=== PATIENT | male | born 1980 | race Caucasian/White ===

== ENCOUNTER 2017-06-11 12:42 | Observation (INO) | payer OTHER ==
[2017-06-11] VITALS (9 sets, daily range): BP systolic 109–141; BP diastolic 56–80; PULSE 42–68; RESP 14–18; TEMP 97.8–98.3; O2SAT 97–100
[~2017-06-11] VITALS: Ht 170.2 cm; Wt 78.0 kg
--- NOTE | 2017-06-11 12:54 | PD ---
Physical Exam Time Seen by Provider: 12:52 Narrative 36yo M c/o chest pain since 930am that comes and goes. Chest pain now w/ "very little SOB." +weakness and hard to concentrate since yesterday. Patient seen in triage. VS reviewed. Awaiting bed placement. Data Data Last Documented VS Vital Signs Date Time Temp Pulse Resp B/P (MAP) Pulse Ox O2 Delivery O2 Flow Rate FiO2 06/11/17 12:43 97.9 42 14 141/77 (98) 99 MDM Supervised Visit with LUX: Kelley Arellano Jun 11, 2017 12:53
[2017-06-11] MEDS ORDERED: SODIUM CHLORIDE 0.9% FLUSH 10 ML FLUSH IVF PRN (13:00)
[2017-06-11 13:23] LABS: AUTOMATED NEUTROPHIL # 3.8 TH/MM3 (1.8-7.7); BASOPHIL % 0.4 % (0.0-2.0); EOSINOPHIL % 0.6 % (0.0-4.0); HEMATOCRIT 46.8 % (39.0-51.0); HEMO FLAGS DIFF FINAL; LYMPH % 27.7 % (9.0-44.0); LYMPHOCYTE # 1.6 TH/MM3 (1.0-4.8); MEAN CELL VOLUME 88.5 FL (80.0-100.0); MEAN CORPUSCULAR HEMOGLOBIN 29.4 PG (27.0-34.0); MEAN CORPUSCULAR HGB CONC 33.2 % (32.0-36.0); MONO % 6.8 % (0.0-8.0); NEUT % 64.5 % (16.0-70.0); PLATELET COUNT 209 TH/MM3 (150-450); RED BLOOD COUNT 5.28 MIL/MM3 (4.50-5.90); RED CELL DISTRIBUTION WIDTH 13.7 % (11.6-17.2); WHITE BLOOD COUNT 5.9 TH/MM3 (4.0-11.0)
[2017-06-11 13:33] LABS: APTT (PATIENT) 31.7 SEC (24.3-30.1); PROTHROMBIN TIME - PATIENT 11.1 SEC (9.8-11.6)
[2017-06-11 13:48] LABS: ANION GAP 6 MEQ/L (5-15); BICARBONATE 27.1 MEQ/L (21.0-32.0); BLOOD UREA NITROGEN 13 MG/DL (7-18); CHLORIDE 106 MEQ/L (98-107); GLOMERULAR FILTRATION RATE 80 ML/MIN (>89); MAGNESIUM 2.4 MG/DL (1.5-2.5); POTASSIUM 4.1 MEQ/L (3.5-5.1); SODIUM (NA) 139 MEQ/L (136-145)
--- NOTE | 2017-06-11 13:48 | RADRPT ---
EXAM DATE/TIME: 06/11/2017 13:31 [facility] COMPARISON: No previous studies available for comparison. INDICATIONS : Chest pain. Tingling and heaviness in extremeties. Right-side facial numbness. Right-side headache. D izziness. MEDICAL HISTORY : Bradycardia. SURGICAL HISTORY : None. ENCOUNTER: Initial ACUITY: 2 days PAIN SCORE: 4/10 LOCATION: Left middle chest FINDINGS: PA and lateral views of the chest demonstrate the lungs to be symmetrically aerated without evidence of mass, infiltrate or effusion. The cardiomediastinal contours are unremarkable. Osseous structure s are intact. CONCLUSION: 1. No acute cardiopulmonary findings. Slava Arreguin MD on June 11, 2017 at 13:46 Board Certified Radiologist. This report was verified electronically.
[2017-06-11 14:03] LABS: CREATINE KINASE 770 U/L (39-308)
[2017-06-11 14:16] LABS: CKMB LESS THAN 0.5 NG/ML (0.5-3.6)
[2017-06-11] MEDS ORDERED: SUMA50TA2 PO (14:18)
[2017-06-11] MEDS ORDERED: TOPI1TAB97 PO (14:18)
[2017-06-11] MEDS ORDERED: ARTIDRO EACH EYE (14:18)
[2017-06-11] MEDS ORDERED: ESCI20TA PO (14:18)
--- NOTE | 2017-06-11 14:19 | PD ---
HPI Chief Complaint: Chest Pain Time Seen by Provider: 14:18 Travel History International Travel<30 days: No Contact w/Intl Traveler<30days: No Traveled to known affect area: No History of Present Illness HPI 36-year-old male with history of anxiety, presents to emergency department for evaluation. Patient states since yesterday he has been "not feeling right." He has had numbness and tingling in his arms with heavy legs. He has began having substernal chest pain that is intermittent and he is not currently having. At 9:00 this morning he began developed a right posterior headache with a change, slowly with some slurring in his speech. He states he is unable to concentrate. Patient recently restarted escitalopram for anxiety. He is on the dose that he has been on in the past. His accompanies him and states that she noticed speech this morning and some downward angling of his right eye. Patient has not been recently ill. He does have history of migraine headaches but this is not typical of any of his migraines in the past. He has no other symptoms to report at this time. [facility] Social History Tobacco Use: No Allergies-Medications (Allergen,Severity, Reaction): Coded Allergies: No Known Allergies (Unverified , 06/11/17) Reported Meds & Prescriptions Reported Meds & Active Scripts Active Reported Sumatriptan (Sumatriptan Succinate) 50 Mg Tab 50 Mg PO ONCE PRN If a satisfactory response has not been obtained at 2 hours, a second dose may be administered Topiramate 25 Mg Tab 25 Mg PO HS Escitalopram (Escitalopram Oxalate) 20 Mg Tab 20 Mg PO DAILY Artificial Tears Opth Drops (Propylene Glycol-Glycerin Opth Drops) 1-0.3% Drops 1-2 Drop EACH EYE TID PRN Review of Systems Except as stated in HPI: all other systems reviewed are Neg Physical Exam Narrative GENERAL: Well-nourished male patient, in no acute distress SKIN: Focused skin assessment warm/dry. HEAD: Atraumatic. Normocephalic. EYES: Pupils equal and round. No scleral icterus. No injection or drainage. EOMIs. PERRL ENT: No nasal bleeding or discharge. Mucous membranes pink and moist. NECK: Trachea midline. No JVD. CARDIOVASCULAR: Bradycardic rate and rhythm. No murmur appreciated. RESPIRATORY: No accessory muscle use. Clear to auscultation. Breath sounds equal bilaterally. GASTROINTESTINAL: Abdomen soft, non-tender, nondistended. Hepatic and splenic margins not palpable. MUSCULOSKELETAL: No obvious deformities. No clubbing. No cyanosis. No edema. 5+ equal strength bilateral upper and lower extremities. NEUROLOGICAL: Awake and alert. Symmetrical facial movements on cranial nerve exam. Patient can rise eyebrows. Forehead wrinkles equally. Open speaking with the patient, he appears to have a subtle right sided facial asymmetry. , Most noted at the lip and eye. Reports altered sensation to touch on the right. Motor grossly within normal limits. Normal speech. PSYCHIATRIC: Appropriate mood and affect; insight and judgment normal. Data Data Last Documented VS Vital Signs Date Time Temp Pulse Resp B/P (MAP) Pulse Ox O2 Delivery O2 Flow Rate FiO2 06/11/17 16:03 50 16 132/80 (97) 99 Room Air 06/11/17 15:32 97.9 Orders Orders Electrocardiogram (06/11/17 12:54) Basic Metabolic Panel (Bmp) (06/11/17 12:54) Ckmb (Isoenzyme) Profile (06/11/17 12:54) Complete Blood Count With Diff (06/11/17 12:54) Magnesium (Mg) (06/11/17 12:54) Prothrombin Time / Inr (Pt) (06/11/17 12:54) Act Partial Throm Time (Ptt) (06/11/17 12:54) Troponin I (06/11/17 12:54) Iv Access Insert/Monitor (06/11/17 12:54) Sodium Chloride 0.9% Flush (Ns Flush) (06/11/17 13:00) Chest, Pa & Lat (06/11/17 12:54) CKMB (06/11/17 13:10) CKMB% (06/11/17 13:10) Ct Brain W/O Iv Contrast(Rout) (06/11/17 ) Orthostatic Vital Signs (06/11/17 14:46) Sodium Chlor 0.9% 1000 Ml Inj (Ns 1000 M (06/11/17 15:30) Ketorolac Inj (Toradol Inj) (06/11/17 16:00) Diphenhydramine Inj (Benadryl Inj) (06/11/17 16:00) Metoclopramide Inj (Reglan Inj) (06/11/17 16:00) Sodium Chlor 0.9% 1000 Ml Inj (Ns 1000 M (06/11/17 16:00) Admit Order (Ed Use Only) (06/11/17 16:39) Place In Observation (06/11/17 ) Code Status (06/11/17 16:37) Vital Signs (Adult) Q2HX12,Q4H (06/11/17 16:37) Nih Stroke Scale - Nihss .Daily (06/11/17 16:37) Neuro Checks Q2HX12,Q4H (06/11/17 16:37) Notify Dr: Other (06/11/17 16:37) Remove Urinary Catheter .ONCE (06/11/17 16:37) Pt Request For Service (06/11/17 16:37) Speech Therapy Consult-Eval/Tx (06/11/17 16:37) Case Management Consult (06/11/17 ) Activity Oob Ad Rosmery (06/11/17 16:37) Nursing Bedside Swallow Assess .ONCE (06/11/17 16:37) Scd Bilateral/Knee High TERE.QSHIFT (06/11/17 16:37) Diet Npo (06/11/17 Dinner) Hemoglobin (Hgb) A1c (06/11/17 16:37) Lipid Profile (06/12/17 06:00) Mri Brain W/O Contrast (06/11/17 ) Echo 2d Comp With Doppler (06/11/17 ) ^ Hold Medication (06/11/17 16:37) Sodium Chloride 0.9% Flush (Ns Flush) (06/11/17 21:00) Sodium Chloride 0.9% Flush (Ns Flush) (06/11/17 16:45) Aspirin Chew (Aspirin Chew) (06/12/17 09:00) Bedside Glucose TERE.AC&HS (06/11/17 16:37) ^ Discontinue Insulin Orders (06/11/17 16:37) Insulin Aspart Supplemtl Scale (Novolog (06/11/17 21:00) Dextrose 50% In Karoline (Vial) Inj (D50w (Vi (06/11/17 16:45) Glucagon Inj (Glucagon Inj) (06/11/17 16:45) Urban Sociologist / Telemetry TERE.Q8H (06/11/17 16:37) Consult Donya Navigator (06/11/17 ) Enoxaparin Inj (Lovenox Inj) (06/11/17 16:45) Labs Laboratory Tests Test 06/11/17 13:10 White Blood Count 5.9 TH/MM3 Red Blood Count 5.28 MIL/MM3 Hemoglobin 15.5 GM/DL Hematocrit 46.8 % Mean Corpuscular Volume 88.5 FL Mean Corpuscular Hemoglobin 29.4 PG Mean Corpuscular Hemoglobin Concent 33.2 % Red Cell Distribution Width 13.7 % Platelet Count 209 TH/MM3 Mean Platelet Volume 8.5 FL Neutrophils (%) (Auto) 64.5 % Lymphocytes (%) (Auto) 27.7 % Monocytes (%) (Auto) 6.8 % Eosinophils (%) (Auto) 0.6 % Basophils (%) (Auto) 0.4 % Neutrophils # (Auto) 3.8 TH/MM3 Lymphocytes # (Auto) 1.6 TH/MM3 Monocytes # (Auto) 0.4 TH/MM3 Eosinophils # (Auto) 0.0 TH/MM3 Basophils # (Auto) 0.0 TH/MM3 CBC Comment DIFF FINAL Differential Comment Prothrombin Time 11.1 SEC Prothromb Time International Ratio 1.0 RATIO Activated Partial Thromboplast Time 31.7 SEC Blood Urea Nitrogen 13 MG/DL Creatinine 1.06 MG/DL Random Glucose 83 MG/DL Calcium Level 9.5 MG/DL Magnesium Level 2.4 MG/DL Sodium Level 139 MEQ/L Potassium Level 4.1 MEQ/L Chloride Level 106 MEQ/L Carbon Dioxide Level 27.1 MEQ/L Anion Gap 6 MEQ/L Estimat Glomerular Filtration Rate 80 ML/MIN Total Creatine Kinase 770 U/L Creatine Kinase MB LESS THAN 0.5 NG/ML Creatine Kinase MB % 0.1 % Troponin I LESS THAN 0.02 NG/ML MDM Medical Decision Making Medical Screen Exam Complete: Yes Emergency Medical Condition: Yes Medical Record Reviewed: Yes Differential Diagnosis Electrolyte abnormality versus psychiatric etiology versus cardiac etiology versus TIA versus CVA versus symptomatic bradycardia versus arrhythmia versus Root's palsy Narrative Course 36-year-old male presents with department for evaluation. Patient appears without distress. There is a very subtle asymmetry of the face noted with right sided deficit noted mostly in the eye and mouth. Strengths are equal bilaterally. Negative pronator drift. Patient is bradycardic and states that his heart rate is typically low in the 50s and 60s. While patient is here he is noted to drop into the 30s, this could possibly be attributing to his symptoms. Laboratory Tests Test 06/11/17 13:10 White Blood Count 5.9 TH/MM3 Red Blood Count 5.28 MIL/MM3 Hemoglobin 15.5 GM/DL Hematocrit 46.8 % Mean Corpuscular Volume 88.5 FL Mean Corpuscular Hemoglobin 29.4 PG Mean Corpuscular Hemoglobin Concent 33.2 % Red Cell Distribution Width 13.7 % Platelet Count 209 TH/MM3 Mean Platelet Volume 8.5 FL Neutrophils (%) (Auto) 64.5 % Lymphocytes (%) (Auto) 27.7 % Monocytes (%) (Auto) 6.8 % Eosinophils (%) (Auto) 0.6 % Basophils (%) (Auto) 0.4 % Neutrophils # (Auto) 3.8 TH/MM3 Lymphocytes # (Auto) 1.6 TH/MM3 Monocytes # (Auto) 0.4 TH/MM3 Eosinophils # (Auto) 0.0 TH/MM3 Basophils # (Auto) 0.0 TH/MM3 CBC Comment DIFF FINAL Differential Comment Prothrombin Time 11.1 SEC Prothromb Time International Ratio 1.0 RATIO Activated Partial Thromboplast Time 31.7 SEC Blood Urea Nitrogen 13 MG/DL Creatinine 1.06 MG/DL Random Glucose 83 MG/DL Calcium Level 9.5 MG/DL Magnesium Level 2.4 MG/DL Sodium Level 139 MEQ/L Potassium Level 4.1 MEQ/L Chloride Level 106 MEQ/L Carbon Dioxide Level 27.1 MEQ/L Anion Gap 6 MEQ/L Estimat Glomerular Filtration Rate 80 ML/MIN Total Creatine Kinase 770 U/L Creatine Kinase MB LESS THAN 0.5 NG/ML Creatine Kinase MB % 0.1 % Troponin I LESS THAN 0.02 NG/ML Last Impressions Chest X-Ray 06/11/17 1254 Signed Impressions: Service Date/Time: May 13:31 - CONCLUSION: 1. No acute cardiopulmonary findings. Slava Arreguin MD Head CT 06/11/17 0000 Signed Impressions: Service Date/Time: May 15:23 - CONCLUSION: Unremarkable study. Germán Kaba MD I discussed the patient with Dr. Rojas who will admit the patient for further evaluation. Diagnosis Primary Impression: Generalized weakness Additional Impressions: Symptomatic bradycardia Facial paresthesia Admitting Information Admitting Physician Requests: Observation Condition: Stable Sania Cornelius Jun 11, 2017 14:19
[2017-06-11] MEDS ORDERED: SODIUM CHLOR 0.9% 1000 ML INJ 1,000 ML IV ONE ×2 (15:30→16:00)
--- NOTE | 2017-06-11 15:37 | RADRPT ---
EXAM DATE/TIME: 06/11/2017 15:23 [facility] COMPARISON: No previous studies available for comparison. INDICATIONS : Patient complains of dizziness, difficulty concentrating, right side tingling for 2 days RADIATION DOSE: 31.74 CTDIvol (mGy) MEDICAL HISTORY : None SURGICAL HISTORY : None. ENCOUNTER: Initial ACUITY: 2 days PAIN SCALE: 0/10 LOCATION: cranial TECHNIQUE: Multiple contiguous axial images were obtained of the head. Using automated exposure control and adj ustment of the mA and/or kV according to patient size, radiation dose was kept as low as reasonably a chievable to obtain optimal diagnostic quality images. DICOM format image data is available electro nically for review and comparison. FINDINGS: There is no evidence for intracranial hemorrhage, mass effect, mass lesions, edema, or extra-axial fl uid collections. The visualized bony structures appear intact. The ventricles are normal size for t he patient's age. There are no signs of acute infarction for technique. CONCLUSION: Unremarkable study. Germán Kaba MD on June 11, 2017 at 15:34 Board Certified Radiologist. This report was verified electronically.
[2017-06-11] MEDS ORDERED: diphenhydrAMINE HCL 50 MG/ML VIAL IV PUSH ONE (16:00)
[2017-06-11] MEDS ORDERED: KETOROLAC TROMETHAMINE 30 MG/ML (IVP) VIAL IV PUSH ONE (16:00)
[2017-06-11] MEDS ORDERED: METOCLOPRAMIDE HCL 10 MG/2 ML VIAL IV PUSH ONE (16:00)
[2017-06-11] MEDS ORDERED: DEXTROSE 50% IN WATER 50 ML VIAL(D50) IV PUSH PRN (16:45)
[2017-06-11] MEDS ORDERED: SODIUM CHLORIDE 0.9% FLUSH 5 ML FLUSH IV FLUSH PRN (16:45)
[2017-06-11] MEDS ORDERED: GLUCAGON 1 MG/ML VIAL OTHER PRN (16:45)
[2017-06-11] MEDS ORDERED: ENOXAPARIN SODIUM 40 MG/0.4 ML SYRINGE SQ SCH ×2 (18:00→20:00)
--- NOTE | 2017-06-11 18:33 | RADRPT ---
EXAM DATE/TIME: 06/11/2017 17:48 [facility] COMPARISON: CT BRAIN W/O CONTRAST, June 11, 2017, 15:23. INDICATIONS : Dizziness. TIA. MEDICAL HISTORY : None. SURGICAL HISTORY : None. ENCOUNTER: Subsequent ACUITY: 1 day PAIN SCORE: 0/10 LOCATION: head. TECHNIQUE: Multiplanar, multisequence MRI of the brain was performed without contrast. FINDINGS: CEREBRUM: The ventricles are normal. No evidence of midline shift, mass lesion, hemorrhage or acute infarction . No extraaxial fluid collections are seen. The pituitary gland and suprasellar cistern are normal in configuration. WHITE MATTER: No significant signal abnormalities are seen in the white matter. POSTERIOR FOSSA: The cerebellum and brainstem are intact. The 4th ventricle is midline. The cerebellopontine angle is unremarkable. The cerebellar tonsils are normal in position. DIFFUSION IMAGING: No focal areas of restricted diffusion are seen. No evidence of acute infarction. EXTRACRANIAL: The visualized portions of the orbits and paranasal sinuses are unremarkable. CONCLUSION: Negative brain MRI without contrast. No acute finding is identified. Jarred Vuong MD on June 11, 2017 at 18:29 Board Certified Radiologist. This report was verified electronically.
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
[2017-06-11] MEDS: SODIUM CHLORIDE 0.9% FLUSH 5 ML FLUSH IV FLUSH SCH (21:00)
[2017-06-11] MEDS: INSULIN ASPART SUPPLEMENTAL SCALE SQ SCH (21:00)
[2017-06-11 22:29] LABS: HEMOGLOBIN A1a 1.1 %; HEMOGLOBIN A1b 0.8 %; HEMOGLOBIN Ao 86.6 %; HEMOGLOBIN LA1C 1.6 %; HEMOGLOBIN P3 3.2 %
[2017-06-12 03:02] VITALS: PULSE 45
[2017-06-12 03:41] VITALS: BP 113/62; PULSE 49; RESP 18; TEMP 96.5; O2SAT 99
[2017-06-12] MEDS: INSULIN ASPART SUPPLEMENTAL SCALE SQ SCH ×2 (06:43→11:00)
[2017-06-12 06:54] LABS: HDL CHOLESTEROL 31.8 MG/DL (40.0-60.0)
[2017-06-12 07:32] VITALS: PULSE 51
[2017-06-12] MEDS ORDERED: ASPIRIN 81 MG CHEW TAB PO SCH (09:00)
[2017-06-12] MEDS: SODIUM CHLORIDE 0.9% FLUSH 5 ML FLUSH IV FLUSH SCH (10:37)
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
--- NOTE | 2017-06-12 11:16 | EKG ---
Date Performed: 06/11/2017 Time Performed: 13:00:10 PTAGE: 36 years EKG: SINUS BRADYCARDIA MODERATE INTRAVENTRICULAR CONDUCTION DELAY BORDERLINE ECG NO PREVIOUS TRACING DOCTOR: Hao Bird Interpretating Date/Time 06/12/2017 11:15:04
[2017-06-12 11:34] VITALS: BP 107/57; PULSE 52; RESP 16; TEMP 98.2; O2SAT 96
[2017-06-12 11:45] LABS: ANION GAP 11 MEQ/L (5-15); BICARBONATE 18.2 MEQ/L (21.0-32.0); BLOOD UREA NITROGEN 15 MG/DL (7-18); CHLORIDE 111 MEQ/L (98-107); CREATINE KINASE 402 U/L (39-308); GLOMERULAR FILTRATION RATE 83 ML/MIN (>89); POTASSIUM 3.9 MEQ/L (3.5-5.1); SODIUM (NA) 140 MEQ/L (136-145)
[2017-06-12 12:11] LABS: CKMB LESS THAN 0.5 NG/ML (0.5-3.6)
--- NOTE | 2017-06-12 12:47 | HHI.PR ---
Subjective Remarks Follow-up for extremity numbness, fatigue, bradycardia. The patient reports these symptoms feel much better today. He states that he has been working outside and exerting himself recently. He was recently restarted on Topamax and escitalopram on Thursday of this week. Those medications were held and the patient was IV hydrated and his symptoms improved. Discussed with neurologist, Dr. Paul, who suspected that the symptoms sound secondary to medication effect, specifically Topamax, no further neurological workup needed at this time, and recommends outpatient [facility] the [place]. Telemetry monitoring showed no profound bradycardia except for heart rate 38 while sleeping. Patient's heart rate did stay in the 40s and 50s persistently, but he states that he is in good shape and very physically active. The patient did recall that he went hiking 2 weeks ago and thinks that he was bitten by 2 ticks. He denies any skin rashes or lesions. No other complaints at this time. Ambulated with no difficulties. He states [facility]. Objective Vitals Vital Signs Date Time Temp Pulse Resp B/P (MAP) Pulse Ox O2 Delivery O2 Flow Rate FiO2 06/12/17 11:34 98.2 52 16 107/57 (74) 96 06/12/17 03:41 96.5 49 18 113/62 (79) 99 06/12/17 03:02 45 06/11/17 23:52 98.1 59 18 122/56 (78) 99 06/11/17 20:59 98.0 60 16 111/65 (80) 97 115/65 (82) 117/63 (81) 06/11/17 19:38 98.3 50 18 116/68 (84) 99 06/11/17 17:58 06/11/17 17:14 97.8 68 18 110/59 (76) 99 Room Air 06/11/17 16:03 50 16 132/80 (97) 99 Room Air 06/11/17 15:32 97.9 45 16 136/80 (98) 100 Room Air 06/11/17 14:52 47 17 109/62 (78) 45 16 115/67 (83) 58 17 136/80 (98) 06/11/17 14:15 41 17 99 Room Air 06/11/17 14:15 97.8 42 18 116/65 (82) 99 Room Air 06/11/17 12:43 97.9 42 14 141/77 (98) 99 I/O 06/11/17 06/11/17 06/11/17 06/12/17 06/12/17 06/12/17 07:00 15:00 23:00 07:00 15:00 23:00 Intake Total 2000 ml Balance 2000 ml Intake IV Total 2000 ml # Voids 1 2 Result Diagram: 06/11/17 1310 06/12/17 0525 Imaging Last Impressions Chest X-Ray 06/11/17 1254 Signed Impressions: Service Date/Time: May 13:31 - CONCLUSION: 1. No acute cardiopulmonary findings. Slava Arreguin MD Head CT 06/11/17 0000 Signed Impressions: Service Date/Time: , June 11, 2017 15:23 - CONCLUSION: Unremarkable study. Germán Kaba MD Brain MRI 06/11/17 0000 Signed Impressions: Service Date/Time: May 17:48 - CONCLUSION: Negative brain MRI without contrast. No acute finding is identified. Jarred Vuong MD Objective Remarks GENERAL: Well-developed well-nourished. In no acute distress. SKIN: Warm and dry. No lesions noted. HEENT: Normocephalic. Pupils equal and round. Mucous membranes pink and moist. CARDIOVASCULAR: Regular rate and rhythm. No murmur appreciated. RESPIRATORY: No accessory muscle use. Clear to auscultation. Breath sounds equal bilaterally. GASTROINTESTINAL: Abdomen soft, non-tender, nondistended. Bowel sounds x4. MUSCULOSKELETAL: No obvious deformities. No clubbing or cyanosis. No edema. NEUROLOGICAL: Awake and alert. No focal neurological deficits. Moves upper and lower extremities spontaneously. Normal speech. PSYCHIATRIC: Appropriate mood and affect; insight and judgment normal. A/P Problem List: (1) Slurred speech ICD Code: R47.81 - Slurred speech Status: Resolved (2) Generalized weakness ICD Code: R53.1 - Weakness Status: Acute (3) Facial paresthesia ICD Code: R20.9 - Unspecified disturbances of skin sensation Status: Resolved (4) Confusion and disorientation ICD Code: F99 - Mental disorder, not otherwise specified Status: Resolved Assessment and Plan 36-year-old male with a past medical history of anxiety/depression, migraines who presented for confusion, weakness, fatigue, extremity numbness Slurred speech/facial paresthesia/Generalized weakness/Confusion and disorientation: Symptoms improving overnight with new medications held and IVF. Suspect secondary to medication effect and mild rhabdomyolysis. Reviewed: Head CT unremarkable. Brain MRI with no acute findings. -Neurology consulted, discussed with Dr. Paul, suspect secondary to medication effect -Discontinue Topamax and Escitalopram -IVF -Possible tick bite ~2 weeks ago, no skin manifestations, send labs for B. burgdorferi antibodies and follow-up [facility] for results Mild rhabdomyolysis: The patient did complain of mild confusion and muscle weakness. CPK 770 at admission, improved to 402 after IVF boluses -Encouraged the patient to stay orally hydrated and to avoid strenuous activity or excessive heat for the next few days Sinus Bradycardia: Heart rate persistently 40-50s. Patient does not seem symptomatic. EKG shows no high degree block. Telemetry monitoring shows no significant bradycardia. -Suspect heart rate is essential secondary to patient's high exercise tolerance/capacity -Continue outpatient follow-up for monitoring DVT prophylaxis: -SCD's Discharge Planning The patient is improved. Plan for discharge after Lyme antibodies are drawn. Recommend following up [facility] the [facility] on Thursday. Ang Vernon Jun 12, 2017 12:47
--- NOTE | 2017-06-12 13:13 | MG ---
cc: JOSE CRUZ BURCH MD Lab No: ____ Date: 06/12/2017 Age: 38 Sex: M Race: __ DATE OF [birth year][address] Rojas MEDICAL HISTORY 1. Chest pain 2. Shortness of breath 3. Weakness 4. Hard to concentrate 5. Numbness and tingling in his arms with heavy legs 6. Right posterior headache 7. Slurred speech 8. Depression/anxiety MEDICATIONS 1. Aspirin 2. Aspart 3. Lovenox DESCRIPTION The background activity is 8-9 Hz alpha located posteriorly bilateral and symmetrical, attenuates to eye-opening. There are muscle and eye blinking artifact throughout the recording. Hyperventilation was not done. Photic stimulation did not elicit a driving response. There were no electrographic seizures or epileptiform discharges noted during the recording. INTERPRETATION This is an awake normal EEG. There is no ictal activity or epileptiform discharges noted. Clinical correlation is recommended. MD MARKUS Yost/LESVIA /12:36 PM /12:58 PM ATIF
--- NOTE | 2017-06-12 15:47 | ECHRPT ---
Indication: CVA/TIA CONCLUSIONS Normal left ventricular size. Wall thickness is normal. The left ventricular systolic function is low normal with an estimated ejection fraction in the rang e of 50- 55%. Trace aortic valve regurgitation. No significant valvulopathies No pericardial effusion BP: 113 / 62 HR: 49 Rhythm: Sinus MEASUREMENTS (Male / Female) Normal Values Technical Quality:Good 2D ECHO LV Diastolic Diameter PLAX 5.0 cm 4.2 - 5.9 / 3.9 - 5.3 cm LV Systolic Diameter PLAX 3.7 cm IVS Diastolic Thickness 0.9 cm 0.6 - 1.0 / 0.6 - 0.9 cm LVPW Diastolic Thickness 0.8 cm 0.6 - 1.0 / 0.6 - 0.9 cm LV Relative Wall Thickness 0.3 M-MODE Aortic Root Diameter MM 3.1 cm AV Cusp Separation MM 2.3 cm DOPPLER AV Peak Velocity 157.0 cm/s AV Peak Gradient 9.9 mmHg LVOT Peak Velocity 89.5 cm/s LVOT Peak Gradient 3.2 mmHg Mitral E Point Velocity 81.4 cm/s Mitral A Point Velocity 43.9 cm/s Mitral E to A Ratio 1.9 TR Peak Velocity 217.0 cm/s TR Peak Gradient 18.8 mmHg FINDINGS LEFT VENTRICLE Normal left ventricular size. Wall thickness is normal. The left ventricular systolic function is low normal with an estimated ejection fraction in the rang e of 50- 55%. RIGHT VENTRICLE Normal right ventricular size and systolic function. LEFT ATRIUM The left atrial size is normal. RIGHT ATRIUM The right atrial size is normal. ATRIAL SEPTUM Normal atrial septal thickness without atrial level shunting by limited color doppler interrogation. AORTA The aortic root and proximal ascending aorta are normal in size on limited imaging. MITRAL VALVE Structurally normal mitral valve. No mitral valve stenosis or regurgitation. AORTIC VALVE Trace aortic valve regurgitation. TRICUSPID VALVE Structurally normal tricuspid valve. No tricuspid valve stenosis or regurgitation. PULMONARY VALVE The pulmonary valve is not well visualized. VESSELS The inferior vena cava is normal in size. PERICARDIUM No pericardial effusion. Gurdeep Wen MD (Electronically Signed) Final Date:12 June 2017 15:46
[2017-06-12] MEDS ORDERED: TOPIRAMATE 25 MG TAB PO SCH (21:00)
[2017-06-17 23:50] LABS: LYME DISEASE 18KD IGG BAND NON-REACTIVE (NON REACTIV); LYME DISEASE 23 IGG BAND NON-REACTIVE (NON REACTIV); LYME DISEASE 23KD IGM BAND NON-REACTIVE (NONREACTIVE); LYME DISEASE 28KD IGG BAND NON-REACTIVE (NON REACTIV); LYME DISEASE 30KD IGG BAND NON-REACTIVE (NON REACTIV); LYME DISEASE 39 KD IGG BAND NON-REACTIVE (NONREACTIVE); LYME DISEASE 39KD IGM BAND NON-REACTIVE (NONREACTIVE); LYME DISEASE 41KD IGG BAND REACTIVE (NONREACTIVE); LYME DISEASE 41KD IGM BAND REACTIVE (NONREACTIVE); LYME DISEASE 45KD IGG BAND NON-REACTIVE (NONREACTIVE); LYME DISEASE 58KD IGG BAND NON-REACTIVE (NONREACTIVE); LYME DISEASE 66KD IGG BAND NON-REACTIVE (NONREACTIVE); LYME DISEASE 93KD IGG BAND NON-REACTIVE (NONREACTIVE); LYME DISEASE IGM WB NEGATIVE (NONREACTIVE)
== END 2017-06-12 15:52 | disposition home or self-care (01) ==
LOC: NEPC 12:42 → NEDA 16:41 → NEPFCDU 18:34
PROVIDERS: ADMIT Family Medicine; ATTEND Family Medicine
DX: R47.81 Slurred speech (principal); R53.1 Weakness; R20.9 Unspecified disturbances of skin sensation; R41.0 Disorientation, unspecified; R00.1 Bradycardia, unspecified; R07.9 Chest pain, unspecified; R06.02 Shortness of breath; M62.82 Rhabdomyolysis; R42 Dizziness and giddiness; F41.9 Anxiety disorder, unspecified; F32.9 Major depressive disorder, single episode, unspecified; G43.909 Migraine, unspecified, not intractable, without status migrainosus; F17.210 Nicotine dependence, cigarettes, uncomplicated; Z79.899 Other long term (current) drug therapy
CPT/HCPCS: 70450; 70551; 71020; 80048; 80061; 82550; 82552; 82948; 83036; 83735; 84484; 85025; 85610; 85730; 86617; 92523; 93005; 93306; 95819; 96361; 96372; 96374; 96375; 99285; G0378; G8999; G9158; G9186; J1200; J1650; J1885; J2765; J7030

== ENCOUNTER 2017-10-04 15:23 | Emergency (ER) | payer OTHER ==
[~2017-10-04] VITALS: Ht 172.7 cm; Wt 80.5 kg
[~2017-10-04 15:23] MED LIST: ARTIDRO EACH EYE; SUMA50TA2 PO
[2017-10-04 15:30] VITALS: BP 133/68; PULSE 53; RESP 16; TEMP 98.2; O2SAT 96
[2017-10-04] MEDS ORDERED: [UNRECOGNIZED DRUG - REMARK] (15:56)
[2017-10-04] MEDS ORDERED: KETOROLAC TROMETHAMINE 60 MG/2 ML (IM) VIAL IM ONE (16:30)
[2017-10-04] MEDS ORDERED: ORPHENADRINE INJ 60 MG/2 ML AMP IM ONE (16:30)
[2017-10-04] MEDS ORDERED: NAPR500T2 PO (16:42)
[2017-10-04] MEDS ORDERED: ROBA750T PO (16:42)
--- NOTE | 2017-10-04 16:44 | PD ---
HPI Chief Complaint: Musculoskeletal Complaint Time Seen by Provider: 16:29 Travel History International Travel<30 days: No Contact w/Intl Traveler<30days: No Traveled to known affect area: No History of Present Illness HPI 37-year-old male patient presents emergency department for evaluation of back pain that started last Thursday after he did some heavy lifting. Patient states Thursday he noticed his back was a little sore in Thursday the pain was significantly worse and has been persistent since. Patient has any other injuries or traumas. Patient denies any paresthesias. Patient denies any incontinence of urine stool. Patient denies any fever or chills. Patient denies any nausea, vomiting, abdominal pain. Patient denies any shortness of breath or chest pain. Patient describes the pain in the lower thoracic upper lumbar region on the right lateral side in the paraspinal muscles. Patient denies any other physiological complaints outside the back pain at this time. Patient denies any IV drug use. PFSH Past Medical History Anxiety: Yes Depression: Yes Diminished Hearing: No Headaches: Yes Neurologic: Yes Past Surgical History Surgical History: No Previous Surgery Other Surgery: No Social History Alcohol Use: Yes (3 TIMES PER WEEK) Tobacco Use: No Substance Use: No (PT DENIES ) Allergies-Medications (Allergen,Severity, Reaction): Coded Allergies: No Known Allergies (Unverified Adverse Reaction, Unknown, 10/04/17) Reported Meds & Prescriptions Reported Meds & Active Scripts Active Reported [Anxiety & Stress??] Review of Systems Except as stated in HPI: all other systems reviewed are Neg Physical Exam Narrative GENERAL: Well-nourished, well-developed 37-year-old male patient in no acute distress. Nontoxic appearing. SKIN: Focused skin assessment warm/dry. HEAD: Normocephalic. Atraumatic. EYES: No scleral icterus. No injection or drainage. NECK: Supple, trachea midline. No JVD or lymphadenopathy. CARDIOVASCULAR: Regular rate and rhythm without murmurs, gallops, or rubs. RESPIRATORY: Breath sounds equal bilaterally. No accessory muscle use. GASTROINTESTINAL: Abdomen soft, non-tender, nondistended. MUSCULOSKELETAL: Full range of motion in bilateral upper and lower extremities. No cyanosis, or edema. BACK: No midline spinal tenderness. Lower thoracic, upper lumbar region right lateral paraspinal tenderness. No obvious deformity, ecchymosis, cyanosis, erythema, edema. No CVA tenderness. Data Data Last Documented VS Vital Signs Date Time Temp Pulse Resp B/P (MAP) Pulse Ox O2 Delivery O2 Flow Rate FiO2 10/04/17 15:30 98.2 53 16 133/68 (89) 96 Orders Orders Ketorolac Inj (Toradol Inj) (10/04/17 16:30) Orphenadrine Inj (Norflex Inj) (10/04/17 16:30) MDM Medical Decision Making Medical Screen Exam Complete: Yes Emergency Medical Condition: Yes Differential Diagnosis Differential diagnoses include but not limited to muscle sprain, muscle strain, back pain Narrative Course Physical assessment consistent with muscular strain on the right lateral paraspinal muscles. IM injection of Toradol and Norflex administered. Patient will be discharged home with prescription for naproxen and Robaxin and instructions for supportive care. Patient will be instructed to return to emergency Department with any worsening conditions. Worsening conditions discussed such as incontinence of urine or stool, paresthesias, saddle numbness. Patient understands reasons to return and states he will return as needed. Patient discharged home at this time. Diagnosis Primary Impression: Back pain Qualified Codes: M54.9 - Dorsalgia, unspecified Referrals: Primary Care Physician Patient Instructions: Back Pain (ED), General Instructions Additional Instructions: Please return to emergency department if your symptoms return or worsen. Follow up with your primary care provider. Take medications as prescribed. Use heating packs or ice pads that the pain management. Med/Other Pt SpecificInfo: Prescription(s) given Scripts Methocarbamol (Robaxin) 750 Mg Tab 750 MG PO QID for Muscle Spasm for 7 Days, TAB 0 Refills Prov: Maya Adame 10/04/17 Naproxen (Naproxen) 500 Mg Tab 500 MG PO BID for 7 Days, #14 TAB 0 Refills Prov: Maya Adame 10/04/17 Disposition: 01 DISCHARGE HOME Condition: Stable Maya Adame Oct 04, 2017 16:44
== END 2017-10-04 17:01 | disposition home or self-care (01) ==
LOC: PHEFT 15:23
DX: M54.9 Dorsalgia, unspecified (principal)
CPT/HCPCS: 96372; 99284; J1885; J2360

== ENCOUNTER 2017-12-21 17:07 | Emergency (ER) | payer OTHER ==
[~2017-12-21] VITALS: Ht 172.7 cm; Wt 78.0 kg
[~2017-12-21 17:07] MED LIST changes: -ARTIDRO EACH EYE; +NAPR500T2 PO; +ROBA750T PO; -SUMA50TA2 PO; +[UNRECOGNIZED DRUG - REMARK]
[2017-12-21 17:15] VITALS: BP 129/67; PULSE 50; RESP 16; TEMP 98.1; O2SAT 99
[2017-12-21 17:48] VITALS: BP 137/62; PULSE 46; RESP 20; O2SAT 96
[2017-12-21] MEDS ORDERED: MULTTAB67 PO (17:54)
--- NOTE | 2017-12-21 18:06 | PD ---
HPI Chief Complaint: Chest Pain Time Seen by Provider: 17:52 Travel History International Travel<30 days: No Contact w/Intl Traveler<30days: No Traveled to known affect area: No History of Present Illness HPI Patient states that starting onset this morning started to develop this sharp chest pain to his anterior left rib area, since then he has been trying to work all day with it. By the end of the day, he was continuing to feel the same pain and now has gotten worse. Pain is rated at a 7 out of 10, worse with activity such as movement or touching. Patient denies any alleviating factors. Patient denies any associated factors such as fever, cough, back pain, abdominal pain, leg pain, nausea, vomiting, diarrhea, any productive sputum, any runny nose or sore throat. No known drug allergies Past medical history significant for a low heart rate, migraines, anxiety, PFSH Past Medical History Anxiety: Yes Depression: Yes Cardiovascular Problems: Yes (low heart rate) Diminished Hearing: No Headaches: Yes Neurologic: Yes Immunizations Current: Yes Tetanus Vaccination: < 5 Years Influenza Vaccination: No Past Surgical History Surgical History: No Previous Surgery Other Surgery: No Social History Alcohol Use: Yes (3 TIMES PER WEEK) Tobacco Use: No Substance Use: No (PT DENIES ) Allergies-Medications (Allergen,Severity, Reaction): Coded Allergies: No Known Allergies (Unverified Adverse Reaction, Unknown, 12/21/17) Reported Meds & Prescriptions Reported Meds & Active Scripts Active Reported Multiple Vitamin 1 Tab 1 Tab PO DAILY [Anxiety & Stress??] Review of Systems General / Constitutional: No: Fever Eyes: No: Visual changes HENT: No: Headaches Cardiovascular: Positive: Chest Pain or Discomfort Respiratory: No: Shortness of Breath Gastrointestinal: No: Abdominal Pain Genitourinary: No: Dysuria Musculoskeletal: No: Pain Skin: No Rash Neurologic: No: Weakness Psychiatric: No: Depression Endocrine: No: Polydipsia Hematologic/Lymphatic: No: Easy Bruising Physical Exam Narrative GENERAL: SKIN: Warm and dry. HEAD: Atraumatic. Normocephalic. EYES: Pupils equal and round. No scleral icterus. No injection or drainage. ENT: No nasal bleeding or discharge. Mucous membranes pink and moist. NECK: Trachea midline. No JVD. CARDIOVASCULAR: Regular rate and rhythm. RESPIRATORY: No accessory muscle use. Clear to auscultation. Breath sounds equal bilaterally. GASTROINTESTINAL: Abdomen soft, non-tender, nondistended. MUSCULOSKELETAL: Extremities without clubbing, cyanosis, or edema. No obvious deformities. Fully reproducible chest pain when palpating the left costochondral area near the seventh, eighth and ninth rib NEUROLOGICAL: Awake and alert. No obvious cranial nerve deficits. Motor grossly within normal limits. Five out of 5 muscle strength in the arms and legs. Normal speech. PSYCHIATRIC: Appropriate mood and affect; insight and judgment normal. Data Data Last Documented VS Vital Signs Date Time Temp Pulse Resp B/P (MAP) Pulse Ox O2 Delivery O2 Flow Rate FiO2 12/21/17 18:30 100 Room Air 12/21/17 18:30 12/21/17 17:48 46 20 12/21/17 17:15 98.1 Orders Orders Electrocardiogram (12/21/17 18:29) Complete Blood Count With Diff (12/21/17 18:29) Basic Metabolic Panel (Bmp) (12/21/17 18:29) Ckmb (Isoenzyme) Profile (12/21/17 18:29) Troponin I (12/21/17 18:29) Chest, Single Ap (12/21/17 18:29) Iv Access Insert/Monitor (12/21/17 18:29) Ecg Monitoring (12/21/17 18:29) Oxygen Administration (12/21/17:) Oximetry (12/21/17 18:29) Lorazepam Inj (Ativan Inj) (12/21/17 18:45) Ketorolac Inj (Toradol Inj) (12/21/17 18:45) CKMB (12/21/17 18:00) CKMB% (12/21/17 18:00) Labs Laboratory Tests Test 12/21/17 18:00 White Blood Count 6.4 TH/MM3 Red Blood Count 5.03 MIL/MM3 Hemoglobin 15.3 GM/DL Hematocrit 44.0 % Mean Corpuscular Volume 87.5 FL Mean Corpuscular Hemoglobin 30.4 PG Mean Corpuscular Hemoglobin Concent 34.7 % Red Cell Distribution Width 13.5 % Platelet Count 197 TH/MM3 Mean Platelet Volume 8.9 FL Neutrophils (%) (Auto) 62.3 % Lymphocytes (%) (Auto) 30.2 % Monocytes (%) (Auto) 5.3 % Eosinophils (%) (Auto) 1.5 % Basophils (%) (Auto) 0.7 % Neutrophils # (Auto) 4.1 TH/MM3 Lymphocytes # (Auto) 1.9 TH/MM3 Monocytes # (Auto) 0.3 TH/MM3 Eosinophils # (Auto) 0.1 TH/MM3 Basophils # (Auto) 0.0 TH/MM3 CBC Comment DIFF FINAL Differential Comment Blood Urea Nitrogen 12 MG/DL Creatinine 1.00 MG/DL Random Glucose 69 MG/DL Calcium Level 8.5 MG/DL Sodium Level 138 MEQ/L Potassium Level 3.7 MEQ/L Chloride Level 105 MEQ/L Carbon Dioxide Level 25.7 MEQ/L Anion Gap 7 MEQ/L Estimat Glomerular Filtration Rate 85 ML/MIN Total Creatine Kinase 137 U/L Creatine Kinase MB LESS THAN 0.5 NG/ML Troponin I LESS THAN 0.02 NG/ML MDM Medical Decision Making Medical Screen Exam Complete: Yes Emergency Medical Condition: Yes Medical Record Reviewed: Yes Differential Diagnosis Chest wall pain versus pneumothorax versus pneumonia versus pulmonary embolus Narrative Course CBC shows no leukocytosis, no anemia, normal platelet count, no left shift Chemistry shows normal electrolytes, normal kidney functions, negative total CPK , negative CK-MB and negative troponin. Chest x-ray was read as lungs are clear by radiologist..... Based on my reading this patient does not have any evidence of rib fracture, no pneumothorax, no pleural effusion and no evidence of a pneumonia either. A well score less than 2 consider a very low probability and thus no need for a d-dimer at this present time (no symptoms of DVT, no tachycardia, no history of immobilization or surgery, no prior history of DVT or PE, no presence of hemoptysis, no presence of malignancy, and based on examination patient had completely reproducible chest wall pain with palpation which provides an alternative diagnosis.) Diagnosis Primary Impression: Chest wall pain Patient Instructions: Chest Wall Pain (GEN), General Instructions Scripts Ketorolac (Ketorolac) 10 Mg Tab 10 MG PO TID Y for Pain Management, #21 TAB 0 Refills Prov: Ranulfo Lugo MD 12/21/17 Baclofen (Baclofen) 20 Mg Tab 20 MG PO TID for Muscle Spasm for 7 Days, #21 TAB 0 Refills Prov: Ranulfo Lugo MD 12/21/17 Disposition: 01 DISCHARGE HOME Condition: Stable Ranulfo Lugo MD Dec 21, 2017 18:06
[2017-12-21 18:30] VITALS: O2SAT 100
[2017-12-21] MEDS ORDERED: KETOROLAC TROMETHAMINE 30 MG/ML (IVP) VIAL IV PUSH ONE (18:45)
[2017-12-21] MEDS ORDERED: LORazepam 2 MG/ML VIAL IV PUSH ONE (18:45)
[2017-12-21 18:48] LABS: AUTOMATED NEUTROPHIL # 4.1 TH/MM3 (1.8-7.7); BASOPHIL % 0.7 % (0.0-2.0); EOSINOPHIL # 0.1 TH/MM3 (0-0.4); EOSINOPHIL % 1.5 % (0.0-4.0); HEMOGLOBIN 15.3 GM/DL (13.0-17.0); LYMPH % 30.2 % (9.0-44.0); LYMPHOCYTE # 1.9 TH/MM3 (1.0-4.8); MEAN CELL VOLUME 87.5 FL (80.0-100.0); MEAN CORPUSCULAR HEMOGLOBIN 30.4 PG (27.0-34.0); MEAN CORPUSCULAR HGB CONC 34.7 % (32.0-36.0); MEAN PLATELET VOLUME 8.9 FL (7.0-11.0); MONO % 5.3 % (0.0-8.0); MONOCYTE # 0.3 TH/MM3 (0-0.9); NEUT % 62.3 % (16.0-70.0); PLATELET COUNT 197 TH/MM3 (150-450); RED BLOOD COUNT 5.03 MIL/MM3 (4.50-5.90); RED CELL DISTRIBUTION WIDTH 13.5 % (11.6-17.2); WHITE BLOOD COUNT 6.4 TH/MM3 (4.0-11.0)
--- NOTE | 2017-12-21 19:48 | RADRPT ---
EXAM DATE/TIME: 12/21/2017 18:44 [facility] COMPARISON: No previous studies available for comparison. INDICATIONS : Shortness of breath, dizziness. MEDICAL HISTORY : Bradycardia. SURGICAL HISTORY : None. ENCOUNTER: Initial ACUITY: 1 day PAIN SCORE: 0/10 LOCATION: Bilateral chest FINDINGS: A single view of the chest demonstrates the lungs to be symmetrically aerated without evidence of mas s, infiltrate or effusion. The cardiomediastinal contours are unremarkable. Osseous structures are intact. CONCLUSION: The lungs are clear. Adriel Arizmendi MD on December 21, 2017 at 19:46 Board Certified Radiologist. This report was verified electronically.
[2017-12-21 19:59] LABS: CHLORIDE 105 MEQ/L (98-107); SODIUM (NA) 138 MEQ/L (136-145)
[2017-12-21 20:01] LABS: CALCIUM 8.5 MG/DL (8.5-10.1)
[2017-12-21 20:02] LABS: BICARBONATE 25.7 MEQ/L (21.0-32.0); BLOOD UREA NITROGEN 12 MG/DL (7-18); GLUCOSE,RANDOM 69 MG/DL (74-106)
[2017-12-21 20:05] LABS: GLOMERULAR FILTRATION RATE 85 ML/MIN (>89)
[2017-12-21 20:10] LABS: TROPONIN I LESS THAN 0.02 NG/ML (0.02-0.05)
[2017-12-21] MEDS ORDERED: BACL20TA PO (20:34)
[2017-12-21] MEDS ORDERED: KETO10 PO (20:34)
[2017-12-21 20:35] VITALS: BP 135/63; PULSE 42; RESP 14; O2SAT 98
--- NOTE | 2017-12-22 18:54 | EKG ---
Date Performed: 12/21/2017 Time Performed: 17:21:19 PTAGE: 37 years EKG: SINUS BRADYCARDIA MODERATE INTRAVENTRICULAR CONDUCTION DELAY BORDERLINE ECG Since the prior tracing, there has been no significant change PREVIOUS TRACING : 06/11/2017 13.00 DOCTOR: Ky Cole Interpretating Date/Time 12/22/2017 18:51:13
== END 2017-12-21 21:20 | disposition home or self-care (01) ==
LOC: PHED 17:07
DX: R07.89 Other chest pain (principal); F32.9 Major depressive disorder, single episode, unspecified; R00.1 Bradycardia, unspecified
CPT/HCPCS: 71045; 80048; 82550; 82552; 84484; 85025; 93005; 96374; 96375; 99285; J1885; J2060